=== PATIENT | male | born 1995 | race Caucasian/White ===

== ENCOUNTER 2023-12-13 15:58 | Outpatient (CLI) | payer OTHER, SELFPAY | END 2023-12-13 15:59 | disposition home or self-care (01) | PROVIDERS: PCP Family Medicine; Visit Provider Family Medicine | DX: Z00.00 Encounter for general adult medical examination without abnormal findings (principal); R79.89 Other specified abnormal findings of blood chemistry; Z13.6 Encounter for screening for cardiovascular disorders | CPT/HCPCS: 80048; 80061; 84146; 85025 ==

== ENCOUNTER 2023-12-30 15:24 | Outpatient (CLI) | payer OTHER, SELFPAY ==
--- NOTE | 2023-12-30 15:30 | CRLHL7_ITS ---
For Patients: As a result of the Century Cures Act, medical imaging exams and procedure reports are released immediately into your electronic medical record. You may view this report before your referring provider. If you have questions, please contact your health care provider. INDICATION: Galactorrhea. COMPARISON: None. TECHNIQUE: Multiplanar T1, T2, FLAIR and diffusion-weighted imaging. Post gadolinium 2 weighted sequences. Additional pre and post and sequences of the sella. FINDINGS: Normal brain parenchymal morphology and signal intensity. No intracranial hemorrhage. No abnormal ventricular dilatation. Intracranial vascular flow voids are preserved. No mass effect or midline shift. No restricted diffusion to suggest acute ischemia. No abnormal enhancement or enhancing lesions within the brain parenchyma. Dedicated sequences of the sella demonstrates a relative hypoenhancing sellar and suprasellar mass measuring 2.1 x 1.5 x 1.7 cm (transverse by AP by cephalocaudal; series 9, image 12; series 10, image 12). Finds consistent with a pituitary adenoma. Superiorly, the there is no impingement of the optic chiasm. The infundibulum is deviated slightly towards the left. There is extension into the right cavernous sinus with less than 50 percent encasement of the cavernous segment of the right intracranial ICA. Mucosal thickening of the right maxillary sinus. Remaining visualized paranasal sinuses mastoid air cells are clear. IMPRESSION: 1. Dedicated imaging of the sella demonstrates a relative hypoenhancing sellar and suprasellar mass consistent with an adenoma. No impingement of the optic chiasm. Infundibulum is deviated slightly towards the left. 2. No acute intracranial abnormality. 3. No abnormal enhancement or enhancing lesions within the brain parenchyma Dictated by Steve Vences MD @ 12/31/2023 10:15:58 AM (Electronically Signed)
== END 2023-12-30 15:25 | disposition home or self-care (01) ==
LOC: MRI 15:25
PROVIDERS: PCP Family Medicine; Visit Provider Family Medicine
DX: N64.3 Galactorrhea not associated with childbirth (principal); R79.89 Other specified abnormal findings of blood chemistry
CPT/HCPCS: 70553; A9575

== ENCOUNTER 2024-01-03 16:11 | Outpatient (CLI) | payer OTHER, SELFPAY | END 2024-01-03 16:12 | disposition home or self-care (01) | PROVIDERS: PCP Family Medicine; Visit Provider Family Medicine | DX: N64.3 Galactorrhea not associated with childbirth (principal); R79.89 Other specified abnormal findings of blood chemistry; R53.83 Other fatigue | CPT/HCPCS: 82024; 84305; 84403; 84443 ==

== ENCOUNTER 2024-07-19 15:11 | Outpatient (CLI) | payer OTHER, SELFPAY ==
--- NOTE | 2024-07-19 15:30 | CRLHL7_ITS ---
For Patients: As a result of the Century Cures Act, medical imaging exams and procedure reports are released immediately into your electronic medical record. You may view this report before your referring provider. If you have questions, please contact your health care provider. INDICATION: Pituitary adenoma. Comparison 12/30/2023. TECHNIQUE: Multiplanar T1, T2, FLAIR and diffusion-weighted imaging. Post gadolinium T1 weighted sequences. Additional pre and post gadolinium T1 sequences of the sella. Dotarem 15 cc IV FINDINGS: Normal brain parenchymal morphology and signal intensity. No intracranial hemorrhage. No abnormal ventricular dilatation. Intracranial vascular flow voids are preserved. No mass effect. No midline shift. No restricted diffusion to suggest acute ischemia. No abnormal enhancement or enhancing lesions within the brain parenchyma. Dedicated sequences of the sella demonstrates interval decrease in size of a hypo enhancing mass within the central and right aspect of the pituitary gland measuring approximately 1.8 x 0.9 cm (transverse by cephalocaudal; best seen on series 9, image 11). Normal infundibulum deviated slightly towards the left.. Stable partial extension of the nodule into the right cavernous sinus with less than 30 percent encasement of the cavernous segment of the right intracranial ICA. Normal left cavernous sinus. Visualized paranasal sinuses and mastoid air cells are unremarkable. Normal visualized orbits. IMPRESSION: 1. Dedicated sequences of the sella demonstrates interval decrease in size of the hypoenhancing adenoma of the central right aspect of pituitary gland. Normal infundibulum deviated slightly towards the left. 2. No acute intracranial abnormality. 3. Normal brain parenchymal morphology and signal intensity. 4. No abnormal enhancement or enhancing lesions within the brain parenchyma. Dictated by Steve Vences MD @ 07/20/2024 9:44:35 AM (Electronically Signed)
== END 2024-07-19 15:12 | disposition home or self-care (01) ==
LOC: MRI 15:11
PROVIDERS: PCP Family Medicine; Visit Provider Internal Medicine Endocrinology, Diabetes & Metabolism
DX: D35.2 Benign neoplasm of pituitary gland (principal)
CPT/HCPCS: 70553; A9575